=== PATIENT | male | born 2000 | race Caucasian/White ===

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

== ENCOUNTER 2020-04-19 23:30 | Emergency (ER) | payer OTHER ==
[~2020-04-19] VITALS: Ht 182.9 cm; Wt 72.6 kg
[~2020-04-19 23:30] MED LIST changes: +DOXYCYCLINE 10100 MG PO
[2020-04-20 00:15] LABS: URINE BILIRUBIN NEGATIVE (Negative); URINE BLOOD NEGATIVE (Negative); URINE CLARITY CLEAR; URINE COLOR YELLOW; URINE GLUCOSE-RANDOM NEGATIVE (Negative); URINE KETONES NEGATIVE (Negative); URINE LEUKOCYTES-REFLEX NEGATIVE (Negative); URINE NITRITE-REFLEX NEGATIVE (Negative); URINE PROTEIN NEGATIVE (Negative); URINE SPECIFIC GRAVITY >= 1.030 (1.005-1.030); URINE UROBILINOGEN 0.2 E.U./dl (0.2-1.0)
[2020-04-20] MEDS ORDERED: VIBRAMYCIN 100100 MG PO ×2 (01:32→01:43)
[2020-04-20] MEDS ORDERED: PYRIDIUM200 MG PO ×2 (01:32→01:42)
[2020-04-20 01:53] VITALS: BP 117/62
== END 2020-04-20 01:54 | disposition home or self-care (01) ==
LOC: M.ERS 23:30
PROVIDERS: Emergency Medicine
DX: R30.0 Dysuria (principal)

== ENCOUNTER 2021-03-21 21:20 | Emergency (ER) | payer OTHER ==
[~2021-03-21] VITALS: Ht 182.9 cm; Wt 72.6 kg
[~2021-03-21 21:20] MED LIST changes: +PYRIDIUM200 MG PO; +VIBRAMYCIN 100100 MG PO
[2021-03-21 22:38] VITALS: BP 140/79
== END 2021-03-21 22:39 | disposition home or self-care (01) ==
LOC: M.ERS 21:20
DX: S93.492A Sprain of other ligament of left ankle, initial encounter (principal); X50.1XXA Overexertion from prolonged static or awkward postures, initial encounter; Y93.89 Activity, other specified; Y92.89 Other specified places as the place of occurrence of the external cause; Y99.8 Other external cause status

== ENCOUNTER 2021-05-15 20:09 | Emergency (ER) | payer OTHER ==
[~2021-05-15] VITALS: Ht 182.9 cm; Wt 72.6 kg
[2021-05-15 20:58] LABS: URINE BILIRUBIN NEGATIVE (Negative); URINE BLOOD NEGATIVE (Negative); URINE CLARITY CLEAR; URINE COLOR YELLOW; URINE GLUCOSE-RANDOM NEGATIVE (Negative); URINE KETONES NEGATIVE (Negative); URINE LEUKOCYTES NEGATIVE (Negative); URINE NITRITE NEGATIVE (Negative); URINE PROTEIN NEGATIVE (Negative); URINE SPECIFIC GRAVITY >= 1.030 (1.005-1.030); URINE UROBILINOGEN 0.2 E.U./dl (0.2-1.0)
[2021-05-15 21:04] LABS: HEMOGLOBIN 14.9 gm/dL (14.0-18.0); MCHC 33.2 g/dL (28.0-37.0); MCV 87.2 fL (80.0-100.0); MPV 7.9 fl. (7.2-11.1); RBC 5.16 mil/uL (4.50-6.00); RDW-CV 13.4 % (10.5-14.5); WBC 7.7 thou/uL (4.0-11.0)
[2021-05-15 21:06] LABS: AMP/METHAMP Negative (Negative); BARBITURATES Negative (Negative); BENZODIAZEPINES Negative (Negative); COCAINE Negative (Negative); METHADONE Negative (Negative); OPIATES Negative (Negative); PCP Negative (Negative); THC Negative (Negative)
[2021-05-15 21:09] LABS: CALCIUM 9.1 mg/dL (8.5-10.1); CREATININE 1.4 mg/dL (0.6-1.3)
[2021-05-15 21:14] LABS: ALBUMIN 4.7 g/dL (3.4-5.0); TOTAL BILIRUBIN 0.6 mg/dL (<0.1-1.0)
[2021-05-15 21:18] LABS: ALCOHOL < 10 mg/dL (<10)
[2021-05-15 21:19] LABS: ACETAMINOPHEN < 2 ug/mL (10-30); SALICYLATE < 2.8 mg/dL (2.8-20.0)
[2021-05-15 22:25] VITALS: BP 118/54
--- NOTE | 2021-05-16 10:31 | EKG ---
[place] [address] ELECTROCARDIOGRAM REPORT Name: CHAMP BROTHERS Room: [facility]#: [id number] Admission: 05/15/21 Attend Phys: Discharge: 05/15/21 Date of : [birth year] Date of Service: 05/15/212045 Report #: [id number] THIS REPORT FOR: //name// [facility] ED Test Date: 2021-05-15 Test Time: 20:46:11 Pat Name: CHAMP BROTHERS Department: Room: Gender: Certified Pathology Assistant: COATES : 2000 Requested By: Alysia Benitez Order Number: [id number] MD: Alexis Conn Measurements Intervals Pierce Rate: 58 P: 21 CA: 168 QRS: 79 QRSD: 86 T: 61 QT: 455 QTc: 447 Interpretive Statements Sinus rhythm ST elev, probable normal early repol pattern Baseline wander in lead(s) I,III,aVR,aVL,aVF,V1,V2,V3,V4,V5,V6 Compared to ECG 10/28/2012 19:31:01 ST (T wave) deviation now present Electronically Signed On 05-16-2021 10:31:42 CDT by Alexis Conn [email or web address] <ELECTRONICALLY SIGNED> By: Alexis Conn MD, [facility] 05/16/21 1031 45 45 Alexis Conn MD, [facility] /EPI
== END 2021-05-15 22:26 | disposition home or self-care (01) ==
LOC: M.ERS 20:09
PROVIDERS: Personal Emergency Response Attendant
DX: R55 Syncope and collapse (principal); Z20.822 Contact with and (suspected) exposure to COVID-19; E86.9 Volume depletion, unspecified